=== PATIENT | male | born 1985 | race Hispanic/Latino ===

== ENCOUNTER 2016-11-12 18:20 | Emergency (ER) | payer OTHER ==
[2016-11-12 18:21] VITALS: BMI 18.6
[2016-11-12 18:52] VITALS: TEMP 98.3
[2016-11-12] MEDS ORDERED: Lidocaine 1% Inj (20ml) IJ STA (19:13)
[2016-11-12] MEDS ORDERED: TDAP Vaccine 0.5 mL Syr IM ONE (19:27)
[2016-11-12 20:32] VITALS: BP 120/75; PULSE 70; RESP 18; O2SAT 99
--- NOTE | 2016-11-12 20:36 | ED PDOC ---
Arrival/HPI - History of Present Illness Time/Duration: 1 hour Symptom Onset: Sudden Symptom Course: Unchanged Quality: Stabbing Severity Level: 8 Activities at Onset: Light Context: Home <ZACK HIGH - Last Filed: 11/12/16 21:11> <Jordan Martinez - Last Filed: 11/12/16 22:30> - General Chief Complaint: Abnormal Skin Integrity - History of Present Illness Narrative History of Present Illness (Text): 11/12/16 20:31 Mr. Jeffrey is a 31 year old male with no significant past medical history who presents to the [facility] ED with a chief complaint of finger lacerations. Patient states that approximately 45 minutes prior to arrival, he was washing dishes at his home when he dropped a porcelain dish and cut himself in the process of picking up the pieces on his left third and fifth digits and right first digit. Patient cleaned his wounds out with an OTC saline wash that his significant other picked up from him. Patient denies any fever, chills, chest pain, palpitations, SOB, easy bleeding, easy bruising, decreased ROM or changes in color in his hands/fingers, or any numbness/tingling/weakness in his extremities distal to his lacerations. (ZACK HIGH) Past Medical History - Provider Review Nursing Documentation Reviewed: Yes - Travel History Have you recently traveled outside [place] w/in the past 3 mons?: No - Past History Past History: No Previous - Infectious Disease Hx of Infectious Diseases: None - Tetanus Immunization Tetanus Immunization: Unknown - Cardiac Hx Cardiac Disorders: No - Pulmonary Hx Respiratory Disorders: No - Neurological Hx Neurological Disorder: No - HEENT Hx HEENT Disorder: No - Renal Hx Renal Disorder: No - Endocrine/Metabolic Hx Endocrine Disorders: No - Hematological/Oncological Hx Blood Disorders: No - Integumentary Hx Dermatological Disorder: No - Musculoskeletal/Rheumatological Hx Musculoskeletal Disorders: No - Gastrointestinal Hx Gastrointestinal Disorders: No - Genitourinary/Gynecological Hx Genitourinary Disorders: No - Psychiatric Hx Psychophysiologic Disorder: No Hx Substance Use: Yes - Anesthesia Hx Anesthesia: No <ZACK HIGH - Last Filed: 11/12/16 21:11> Family/Social History - Physician Review Nursing Documentation Reviewed: Yes Family/Social History: Unknown Family HX Smoking Status: Heavy Smoker > 10 Cigarettes Daily Hx Alcohol Use: Yes Frequency of alcohol use: Socially Hx Substance Use: Yes Substance used: marijuana <ZACK HIGH - Last Filed: 11/12/16 21:11> Allergies/Home Meds <ZACK HIGH - Last Filed: 11/12/16 21:11> <Jordan Martinez - Last Filed: 11/12/16 22:30> Allergies/Adverse Reactions: Allergies No Known Allergies Allergy (Verified 06/08/15 12:25) Home Medications: Home Meds Medication Instructions Recorded Confirmed No Known Home Med 06/08/15 11/12/16 Review of Systems - Physician Review All systems were reviewed & negative as marked: Yes - Review of Systems Constitutional: Normal. absent: Fevers, Night Sweats Respiratory: Normal. absent: SOB Cardiovascular: Normal. absent: Chest Pain, Palpitations Musculoskeletal: Normal, Other (Denies color changes distal to lacerations on both right and left hands; denies limited ROM to any affected extremity). absent: Arthralgias, Joint Swelling Skin: Laceration (Lacerations to left third and fifth digits ), Other ( abrasion to right first digit). absent: Normal Neurological: Normal, Other Hemo/Lymphatic: Normal. absent: Easy Bleeding, Easy Bruising <ZACK HIGH - Last Filed: 11/12/16 21:11> Physical Exam Vital Signs Reviewed: Yes Temperature: Afebrile Blood Pressure: Normal Pulse: Regular Respiratory Rate: Normal Appearance: Positive for: Well-Appearing, Non-Toxic, Comfortable Pain Distress: Mild Mental Status: Positive for: Alert and Oriented X 3 - Systems Exam Head: Present: Atraumatic, Normocephalic Pupils: Present: PERRL Extroacular Muscles: Present: EOMI Conjunctiva: Present: Normal Mouth: Present: Moist Mucous Membranes Neck: Present: Normal Range of Motion Respiratory/Chest: Present: Clear to Auscultation, Good Air Exchange. No: Respiratory Distress, Accessory Muscle Use, Wheezes, Tachypneic Cardiovascular: Present: Regular Rate and Rhythm, Normal S1, S2, Peripheal Pulses Present. No: Murmurs, Irregular Rhythm, Tachycardic Abdomen: Present: Normal Bowel Sounds. No: Tenderness, Distention, Peritoneal Signs Upper Extremity: Present: NORMAL PULSES, Neurovascularly Intact, Capillary Refill < 2s. No: Normal Inspection, Cyanosis, Edema, Swelling, Temperature Abnormalties Lower Extremity: Present: Normal Inspection, NORMAL PULSES. No: Edema, CALF TENDERNESS Neurological: Present: GCS=15, CN II-XII Intact, Speech Normal Skin: Present: Warm, Dry, Normal Color, Laceration (1.5cm laceration to PIP of left third digit, 1.5cm laceration to MCP of left fifth digit ), Abrasion ( abrasion of right first digit over MCP). No: Rashes Psychiatric: Present: Alert, Oriented x 3, Normal Insight, Normal Concentration <ZACK HIGH - Last Filed: 11/12/16 21:11> Vital Signs Temp Pulse Resp BP Pulse Ox 11/12/16 20:31 70 18 120/75 99 11/12/16 18:51 98.3 F 87 16 117/73 100 Medical Decision Making <ZACK HIGH - Last Filed: 11/12/16 21:11> <Jordan Martinez - Last Filed: 11/12/16 22:30> ED Course and Treatment: 11/12/16 20:42 Impression: 31 year old male with no significant past medical history who presents to the [facility] ED with a chief complaint of finger lacerations Plan: -Irrigation with sterile normal saline -1% lidocaine IJ for local anasthesia -Suturing of left digit lacerations with finger splint to left third digit -Bacitracin ointment and wound care to both left digit lacerations and right digit abrasion -Tdap vaccine given -Reassess and disposition Prior Visits: All results and reports from previous visits were reviewed 06/08/2015: Patient was seen at [facility] ED for stomach pain (ZACK HIGH) 11/12/16 21:30 Pt. seen and evaluated with the medical office technologist.Agree with HPI,clinical findings,treatment plan. (Jordan Martinez) - Medication Orders Current Medication Orders: Discontinued Medications Lidocaine HCl (Lidocaine 1% (20ml)) 10 ml IJ STAT STA Stop: 11/12/16 19:14 Tetanus/Reduced Diphtheria/Acell Pertussis (Boostrix Vaccine Inj) 0.5 ml IM .ONCE ONE Stop: 11/12/16 19:28 Last Admin: 11/12/16 20:28 Dose: 0.5 ml [facility] Immunization Data Document 11/12/16 20:28 SF (Rec: 11/12/16 20:29 SF [id number]) Immunization Data Vaccine Lot Number [id number] Vaccine Expiration Date 11/25/18 Site Given Left Deltoid Procedure: Wound Repair - Time Performed Time Performed: 20:00 - Time Out Time Out: Side verified, Site verified, Patient ID confirmed, Sterile procedures obs. - Consent Obtained Consent obtained: Verbal - Performed by Performed by: Mid-level Provider - Indications Indication(s):: Laceration - Location Finger:: Left, Middle, Ring Shape:: Linear Dimensions Length cm: 1.5cm on left middle finger and 1.5cm on left ring finger Depth:: Subcutaneous fascia - Anesthetic Technique Anesthetic Technique: Local Local/Regional Anesthetic:: Lidocaine 1% - Debris Debris:: None - Irrigated Irrigated with ml of normal saline: 50 - Complexity Complexity:: Simple (one layer) - Wound repair method Sutures:: # (6), Size (5-0), Type (Proline) - Muscle repiar layer closed with Muscle repair layer closed with:: Abx ointment applied, Dressing applied, Tetanus ordered - Patient tolerated procedure Patient Tolerated Procedure:: Well <ZACK HIGH - Last Filed: 11/12/16 21:11> - PA / WELFARE ELIGIBILITY WORKER / Resident Statement / has reviewed & agrees with the documentation as recorded. / has examined the patient and agrees with the treatment plan. <Jordan Martinez - Last Filed: 11/12/16 22:30> Disposition/Present on Arrival - Present on Arrival Any Indicators Present on Arrival: No History of DVT/PE: No History of Uncontrolled Diabetes: No Urinary Catheter: No History of Decub. Ulcer: No History Surgical Site Infection Following: None - Disposition Have Diagnosis and Disposition been Completed?: No Disposition Time: 20:53 <ZACK HIGH - Last Filed: 11/12/16 21:11> <Jordan Martinez - Last Filed: 11/12/16 22:30> - Disposition Diagnosis: Finger laceration Disposition: HOME/ ROUTINE Condition: GOOD Discharge Instructions (ExitCare): Care For Your Stitches (ED), Laceration (ED) Additional Instructions: Carlos Jeffrey, thank you for letting us take care of you today. Your provider was Dr. Martinez. You were treated for finger lacerations. The emergency medical care you received today was directed at your acute symptoms. If you were prescribed any medication, please fill it and take as directed. It may take several days for your symptoms to resolve. Return to the Emergency Department if your symptoms worsen, do not improve, or if you have any other problems. PLEASE FOLLOW UP WITH EITHER YOUR PMD OR COME BACK TO THE ER IN 7-10 DAYS FOR SUTURE REMOVAL Please contact your doctor or call one of the physicians/clinics you have been referred to that are listed on the Patient Visit Information form that is included in your discharge packet. Bring any paperwork you were given at discharge with you along with any medications you are taking to your follow up visit. Our treatment cannot replace ongoing medical care by a primary care provider (PCP) outside of the emergency department. Thank you for allowing the [employer] team to be part of your care today. Forms: [facility] ([place]), WORK NOTE
== END 2016-11-12 21:01 | disposition home or self-care (01) ==
LOC: ED 18:20
DX: S61.213A Laceration without foreign body of left middle finger without damage to nail, initial encounter (principal); S61.215A Laceration without foreign body of left ring finger without damage to nail, initial encounter; W45.8XXA Other foreign body or object entering through skin, initial encounter; Y93.G1 Activity, food preparation and clean up; Y92.009 Unspecified place in unspecified non-institutional (private) residence as the place of occurrence of the external cause; Z23 Encounter for immunization

== ENCOUNTER 2016-11-19 15:31 | Emergency (ER) | payer OTHER ==
--- NOTE | 2016-11-19 15:34 | ED PDOC ---
Arrival/HPI - General Time Seen by Provider: 11/19/16 15:32 Historian: Patient - History of Present Illness Narrative History of Present Illness (Text): 11/19/16 15:34 31 y/o male, no significant pmh, nkda, s/p sutured on lt. hand 3rd and 5th digit with 6 sutures s/p sutured about 7 days ago. Wound healing well and dry, no numbness or tingling, no night sweat, no rash, no palpitation, no other medical or psychological complaints. Past Medical History - Provider Review Nursing Documentation Reviewed: Yes - Past History Past History: No Previous - Infectious Disease Hx of Infectious Diseases: None - Tetanus Immunization Tetanus Immunization: Unknown - Cardiac Hx Cardiac Disorders: No - Pulmonary Hx Respiratory Disorders: No - Neurological Hx Neurological Disorder: No - HEENT Hx HEENT Disorder: No - Renal Hx Renal Disorder: No - Endocrine/Metabolic Hx Endocrine Disorders: No - Hematological/Oncological Hx Blood Disorders: No - Integumentary Hx Dermatological Disorder: No - Musculoskeletal/Rheumatological Hx Musculoskeletal Disorders: No - Gastrointestinal Hx Gastrointestinal Disorders: No - Genitourinary/Gynecological Hx Genitourinary Disorders: No - Psychiatric Hx Psychophysiologic Disorder: No Hx Substance Use: Yes - Anesthesia Hx Anesthesia: No Family/Social History - Physician Review Nursing Documentation Reviewed: Yes Family/Social History: Unknown Family HX Smoking Status: Heavy Smoker > 10 Cigarettes Daily Hx Alcohol Use: Yes Hx Substance Use: Yes Substance used: marijuana Allergies/Home Meds Allergies/Adverse Reactions: Allergies Pertussis Vaccines Allergy (Verified 11/19/16 15:37) ANAPHYLAXIS Home Medications: Home Meds Medication Instructions Recorded Confirmed No Known Home Med 06/08/15 11/19/16 Review of Systems - Review of Systems Constitutional: absent: Fatigue, Fevers Eyes: absent: Vision Changes ENT: absent: Hearing Changes Respiratory: absent: SOB, Cough Cardiovascular: absent: Chest Pain, Palpitations Gastrointestinal: absent: Abdominal Pain, Diarrhea, Nausea, Vomiting Musculoskeletal: absent: Arthralgias, Back Pain Skin: Laceration (sutures). absent: Rash, Pruritis, Skin Lesions, Abscess, Ulcer Neurological: absent: Headache Physical Exam Vital Signs Reviewed: Yes Vital Signs Temp Pulse Resp BP Pulse Ox 11/19/16 15:39 98.1 F 100 H 18 120/78 98 11/19/16 15:36 98.1 F 100 H 17 120/78 98 Temperature: Afebrile Blood Pressure: Normal Pulse: Regular Respiratory Rate: Normal Appearance: Positive for: Well-Appearing, Non-Toxic, Comfortable Pain Distress: Mild Mental Status: Positive for: Alert and Oriented X 3 - Systems Exam Head: Present: Atraumatic, Normocephalic Pupils: Present: PERRL Extroacular Muscles: Present: EOMI Conjunctiva: Present: Normal Respiratory/Chest: Present: Clear to Auscultation, Good Air Exchange. No: Respiratory Distress, Accessory Muscle Use Cardiovascular: Present: Regular Rate and Rhythm, Normal S1, S2. No: Murmurs Abdomen: Present: Normal Bowel Sounds. No: Tenderness, Distention, Peritoneal Signs Upper Extremity: Present: Normal Inspection, Other (Lt. hand: visible 3 sutures prolene noted on 3rd and 5th digits with total of 6 prolene sutures, wound is still healing and not completely heal, FROM without limitation, sensation intact , motor 5/5, +radial pulse, capillary refill< 2 seconds, neurovascular intact. ) . No: Cyanosis, Edema Neurological: Present: GCS=15, CN II-XII Intact, Speech Normal Skin: Present: Warm, Dry, Normal Color. No: Rashes Psychiatric: Present: Alert, Oriented x 3, Normal Insight, Normal Concentration Medical Decision Making ED Course and Treatment: 11/19/16 15:44 -I explained to the patient that the sutures are too early to be removed, advised to wait additional 3-4 days. -Discharge home with education on follow up with your own pmd and hand specialist within 3-4 days for sutures removal, avoid strenuous exercise or activity, return to the ER for any new or worsening signs or symptoms. - PA / ELECTRONIC DESIGN ENGINEER / Resident Statement / has reviewed & agrees with the documentation as recorded. Disposition/Present on Arrival - Present on Arrival Any Indicators Present on Arrival: No History of DVT/PE: No History of Uncontrolled Diabetes: No Urinary Catheter: No History of Decub. Ulcer: No History Surgical Site Infection Following: None - Disposition Have Diagnosis and Disposition been Completed?: Yes Diagnosis: Suture check Disposition: HOME/ ROUTINE Disposition Time: 15:46 Patient Plan: Discharge Condition: GOOD Additional Instructions: -Discharge home with education on follow up with your own pmd and hand specialist within 3-4 days for sutures removal, avoid strenuous exercise or activity, return to the ER for any new or worsening signs or symptoms. Referrals: [facility] [Outside] - Follow up with primary Mary Ellen Urrutia MD [Non-Staff] - Follow up with primary Forms: WORK NOTE
[2016-11-19 15:37] VITALS: BP 120/78; PULSE 100; TEMP 98.1; O2SAT 98; BMI 17.9
[2016-11-19 15:41] VITALS: RESP 18
== END 2016-11-19 15:56 | disposition home or self-care (01) ==
LOC: ED 15:31
DX: Z51.89 Encounter for other specified aftercare (principal)

== ENCOUNTER 2017-06-02 12:39 | Emergency (ER) | payer OTHER ==
[2017-06-02 12:47] VITALS: BMI 18.1
--- NOTE | 2017-06-02 12:49 | ED PDOC ---
Arrival/HPI - General Time Seen by Provider: 06/02/17 12:48 Historian: Patient - History of Present Illness Narrative History of Present Illness (Text): 06/02/17 12:48 32 y/o male, no significant pmh, allergic to pertussis vaccines?, c/o feeling dizziness/tremoring started yesterday with no alcohol or drug abuse except he smokes marijuanna occasionally. Pt. stated that he had an episode of feeling tremoring/anxious/palpitation with hyperventilating and dizziness shortly which total episode lasted couple minutes then resolved. Pt. stated that he had an episode this morning as well but resolved which again lasted for few seconds. Pt. stated that he doesn't feel anxious/depression/suicidal or homicidal ideation. Pt. has no other medical or psychological complaints. Past Medical History - Provider Review Nursing Documentation Reviewed: Yes - Past History Past History: No Previous - Infectious Disease Hx of Infectious Diseases: None - Tetanus Immunization Tetanus Immunization: Unknown - Cardiac Hx Cardiac Disorders: No - Pulmonary Hx Respiratory Disorders: No - Neurological Hx Neurological Disorder: No - HEENT Hx HEENT Disorder: No - Renal Hx Renal Disorder: No - Endocrine/Metabolic Hx Endocrine Disorders: No - Hematological/Oncological Hx Blood Disorders: No - Integumentary Hx Dermatological Disorder: No - Musculoskeletal/Rheumatological Hx Musculoskeletal Disorders: No - Gastrointestinal Hx Gastrointestinal Disorders: No - Genitourinary/Gynecological Hx Genitourinary Disorders: No - Psychiatric Hx Psychophysiologic Disorder: No Hx Substance Use: Yes - Anesthesia Hx Anesthesia: No Family/Social History - Physician Review Nursing Documentation Reviewed: Yes Family/Social History: Unknown Family HX Smoking Status: Heavy Smoker > 10 Cigarettes Daily Hx Alcohol Use: Yes Hx Substance Use: Yes Substance used: marijuana Allergies/Home Meds Allergies/Adverse Reactions: Allergies Pertussis Vaccines Allergy (Verified 11/19/16 15:37) ANAPHYLAXIS Home Medications: Home Meds Medication Instructions Recorded Confirmed No Known Home Med 06/08/15 11/19/16 Review of Systems - Review of Systems Constitutional: absent: Fatigue, Fevers Eyes: absent: Vision Changes ENT: absent: Hearing Changes Respiratory: absent: SOB, Cough Cardiovascular: absent: Chest Pain Gastrointestinal: absent: Abdominal Pain, Nausea, Vomiting Skin: absent: Rash, Pruritis Neurological: absent: Headache Psychiatric: absent: Anxiety, Depression Physical Exam Vital Signs Reviewed: Yes Vital Signs Temp Pulse Resp BP Pulse Ox 06/02/17 12:40 98.2 F 81 16 119/74 98 Temperature: Afebrile Blood Pressure: Normal Pulse: Regular Respiratory Rate: Normal Appearance: Positive for: Well-Appearing, Non-Toxic, Comfortable Pain Distress: None Mental Status: Positive for: Alert and Oriented X 3 - Systems Exam Head: Present: Atraumatic, Normocephalic Pupils: Present: PERRL Extroacular Muscles: Present: EOMI Conjunctiva: Present: Normal Mouth: Present: Moist Mucous Membranes Neck: Present: Normal Range of Motion Respiratory/Chest: Present: Clear to Auscultation, Good Air Exchange. No: Respiratory Distress, Accessory Muscle Use Cardiovascular: Present: Regular Rate and Rhythm, Normal S1, S2. No: Murmurs Abdomen: No: Tenderness, Distention, Peritoneal Signs Back: Present: Normal Inspection Upper Extremity: Present: Normal Inspection. No: Cyanosis, Edema Lower Extremity: Present: Normal Inspection. No: Edema Neurological: Present: GCS=15, CN II-XII Intact, Speech Normal, Motor Func Grossly Intact, Gait Normal, Memory Normal, Other (no tremors and no tongue fasciculation. ) Skin: Present: Warm, Dry, Normal Color. No: Rashes Psychiatric: Present: Alert, Oriented x 3, Normal Insight, Normal Concentration Medical Decision Making ED Course and Treatment: 06/02/17 13:09 -Labs/alcohol and drug screening/thyroid profile -ekg -cxr -IVF -Observe and reassess 06/02/17 14:56 -Pt. is asymptomatic, feels well, request to be discharged home, refused psychiatric evaluation. He has no homocidal/suicidal ideation either. -EKG: NSR @ 65 BPM, no ST elevation or depression, no T wave inversion, incomplete LBBB. -Chest xray: no active disease -Labs are non-significant -Thyroid profile is mild low TSH and normal T4, this is subclinical hyperthyroidism. -Troponin is non-significant -UDS show +Cannabinoid -Discharge home with education on avoid caffeine/energy products and avoid gym/ exercise/activity until clear by the ultrasound applications specialist, follow up with your own pmd and endocrionologist as well regarding about your low TSH and normal T4 as this will needs follow up with repeat test and thyroid sonogram, return to the ER for any new or worsening signs or symptoms. - Lab Interpretations Lab Results: 06/02/17 13:29 06/02/17 13:29 Lab Results 06/02/17 13:29: WBC 5.4 D, RBC 4.98, Hgb 14.9, Hct 44.5, MCV 89.4, MCH 29.9, MCHC 33.5, RDW 12.6, Plt Count 266, MPV 10.9, Gran % 67.0, Lymph % (Auto) 18.6 L , [place] % (Auto) 9.0 H, Eos % (Auto) 4.1, Baso % (Auto) 1.3, Gran # 3.64, Lymph # (Auto) 1.0 L, [place] # (Auto) 0.5, Eos # (Auto) 0.2, Baso # (Auto) 0.07 06/02/17 13:29: Salicylates < 1 L, Acetaminophen < 10.0 L 06/02/17 13:29: Free T4 1.00, TSH 3rd Generation 0.32 L, Alcohol, Quantitative < 10 06/02/17 13:29: Urine Opiates Screen Negative, Urine Methadone Screen Negative, Ur Barbiturates Screen Negative, Ur Phencyclidine Scrn Negative, Ur Amphetamines Screen Negative, U Benzodiazepines Scrn Negative, U Oth Cocaine Metabols Negative, U Cannabinoids Screen Positive H 06/02/17 13:29: Sodium 141, Potassium 3.9, Chloride 103, Carbon Dioxide 29, Anion Gap 12, BUN 15, Creatinine 0.7 L, Est GFR ( Amer) > 60, Est GFR ( Non-Af Amer) > 60, Random Glucose 105, Calcium 9.6, Magnesium 2.0, Total Bilirubin 1.1, AST 21, ALT 28, Alkaline Phosphatase 73, Lactate Dehydrogenase 261 L, Total Creatine Kinase 88, Troponin I < 0.01, Total Protein 6.7, Albumin 4.4, Globulin 2.3, Albumin/Globulin Ratio 1.9 H I have reviewed the lab results: Yes - RAD Interpretation Radiology Orders: 06/02/17 13:03 CHEST PORTABLE [RAD] Stat HISTORY: medical clearance COMPARISON: No prior. FINDINGS: LUNGS: No active pulmonary disease. PLEURA: No significant pleural effusion identified, no pneumothorax apparent. CARDIOVASCULAR: Normal. OSSEOUS STRUCTURES: No significant abnormalities. VISUALIZED UPPER ABDOMEN: Normal. OTHER FINDINGS: None. IMPRESSION: No active disease. Training Systems Officer: Radiologist - EKG Interpretation EKG Interpretation (Text): 06/02/17 14:54 -EKG: NSR @ 65 BPM, no ST elevation or depression, no T wave inversion, incomplete LBBB. Interpreted by ED Physician: Yes Type: 12 lead EKG - Medication Orders Current Medication Orders: Discontinued Medications Sodium Chloride (Sodium Chloride 0.9%) 1,000 mls @ 999 mls/hr IV .Q1H1M STA Stop: 06/02/17 14:03 Last Admin: 06/02/17 13:26 Dose: 999 mls/hr eMAR Start Stop Document 06/02/17 13:26 GMD (Rec: 06/02/17 13:26 GMD [id number]) Intravenous Solution Start Date 06/02/17 Start Time 13:26 End Date 06/02/17 End time 14:27 Total Infusion Time 61 - PA / DROP WIRE ALINER / Resident Statement / has reviewed & agrees with the documentation as recorded. Disposition/Present on Arrival - Present on Arrival Any Indicators Present on Arrival: No History of DVT/PE: No History of Uncontrolled Diabetes: No Urinary Catheter: No History of Decub. Ulcer: No History Surgical Site Infection Following: None - Disposition Have Diagnosis and Disposition been Completed?: Yes Diagnosis: Subclinical hyperthyroidism Disposition: HOME/ ROUTINE Disposition Time: 13:09 Patient Plan: Discharge Condition: IMPROVED Additional Instructions: -Discharge home with education on avoid caffeine/energy products and avoid gym/ exercise/activity until clear by the ultrasound applications specialist, follow up with your own pmd and endocrionologist as well regarding about your low TSH and normal T4 as this will needs follow up with repeat test and thyroid sonogram, return to the ER for any new or worsening signs or symptoms. Referrals: Billie Valdez MD [Medical Doctor] - Follow up with primary Campos Hendricks MD [Staff Provider] - Follow up with primary Forms: WORK NOTE
[2017-06-02 12:51] VITALS: TEMP 98.2
[2017-06-02] MEDS ORDERED: Sodium Chloride 0.9% 1,000 ML IV STA (13:03)
[2017-06-02 13:45] LABS: BASO # 0.07 K/mm3 (0.0-2.0); BASO % 1.3 % (0.0-3.0); EOS # 0.2 (0.0-0.7); EOS % 4.1 % (1.5-5.0); GRAN # 3.64 (1.4-6.5); HEMOGLOBIN 14.9 g/dL (14.0-18.0); LYMPH % 18.6 % (22.0-35.0); MEAN CELL VOLUME 89.4 fl (80.0-105.0); MEAN CORPUSCULAR HEMOGLOBIN 29.9 pg (25.0-35.0); MEAN CORPUSCULAR HGB CONC 33.5 g/dl (31.0-37.0); MEAN PLATELET VOLUME 10.9 fl (7.0-11.0); MONO # 0.5 (0.1-0.6); RBC 4.98 10^6/uL (3.5-6.1); RED CELL DISTRIBUTION WIDTH 12.6 % (11.5-14.5); WHITE BLOOD COUNT 5.4 10^3/ul (4.5-11.0)
--- NOTE | 2017-06-02 13:57 | RAD ---
HISTORY: medical clearance COMPARISON: No prior. FINDINGS: LUNGS: No active pulmonary disease. PLEURA: No significant pleural effusion identified, no pneumothorax apparent. CARDIOVASCULAR: Normal. OSSEOUS STRUCTURES: No significant abnormalities. VISUALIZED UPPER ABDOMEN: Normal. OTHER FINDINGS: None. IMPRESSION: No active disease.
[2017-06-02 14:08] LABS: ALB/GLOB RATIO 1.9 (1.1-1.8); ALBUMIN 4.4 g/dL (3.0-4.8); ALT/SGPT 28 U/L (7-56); AST/SGOT 21 U/L (17-59); BLOOD UREA NITROGEN 15 mg/dL (7-21); CALCIUM 9.6 mg/dL (8.4-10.5); GFR AFRICAN-AMERICAN > 60; GFR NON-AFRICAN AMERICAN > 60
[2017-06-02 14:14] LABS: ACETAMINOPHEN < 10.0 ug/ml (10.0-20.0); SALICYLATE < 1 mg/dL (2.0-20.0)
[2017-06-02 14:25] LABS: BARBITURATES, UR NEGATIVE (NEGATIVE); BENZODIAZEPINES, UR NEGATIVE (NEGATIVE); OPIATES, UR NEGATIVE (NEGATIVE); PHENCYCLIDINE, UR NEGATIVE (NEGATIVE)
[2017-06-02 14:30] LABS: TROPONIN I < 0.01 ng/mL
[2017-06-02 15:29] VITALS: BP 128/76; PULSE 76; RESP 18; O2SAT 100
--- NOTE | 2017-06-02 23:36 | CARD ---
APPROVED REPORT EKG Measurement Heart [id number] <Conclusion> Normal sinus rhythm Normal ECG
== END 2017-06-02 15:31 | disposition home or self-care (01) ==
LOC: ED 12:39
DX: E05.90 Thyrotoxicosis, unspecified without thyrotoxic crisis or storm (principal); F12.10 Cannabis abuse, uncomplicated
CPT/HCPCS: 71045; 80053; 80320; 80324; 80329; 80345; 80346; 80349; 80353; 80358; 80361; 82550; 83615; 83735; 83992; 84439; 84443; 84484; 85025; 93005; 96360; 99284; J7040

== ENCOUNTER 2017-07-29 13:04 | Emergency (ER) | payer OTHER ==
[2017-07-29 13:38] VITALS: RESP 18; TEMP 98.5; BMI 17.9
--- NOTE | 2017-07-29 13:59 | ED PDOC ---
Arrival/HPI - General Chief Complaint: GI Problem Time Seen by Provider: 07/29/17 13:33 Historian: Patient - History of Present Illness Narrative History of Present Illness (Text): 07/29/17 13:54 32 year old male, with no significant past medical history, presents to the Emergency department for transient nausea since 1 month. Patient states every morning he wakes up with nausea and feels shaky, which subsequently subsides as the day progresses. However, the episode presents again the following morning and has been going on for a month. Patient denies any fever, chills, vomiting, diarrhea, abdominal pain, chest pain, shortness of breath or any other complaints. Patient denies smoking cigarettes or drinking alcohol. Patient presents to the Emergency department for medical evaluation. Time/Duration: Other (1 month) Symptom Onset: Gradual Symptom Course: Unchanged Activities at Onset: Light Context: Home Past Medical History - Provider Review Nursing Documentation Reviewed: Yes - Past History Past History: No Previous - Infectious Disease Hx of Infectious Diseases: None - Tetanus Immunization Tetanus Immunization: Unknown - Cardiac Hx Cardiac Disorders: No - Pulmonary Hx Respiratory Disorders: No - Neurological Hx Neurological Disorder: No - HEENT Hx HEENT Disorder: No - Renal Hx Renal Disorder: No - Endocrine/Metabolic Hx Endocrine Disorders: No - Hematological/Oncological Hx Blood Disorders: No - Integumentary Hx Dermatological Disorder: No - Musculoskeletal/Rheumatological Hx Musculoskeletal Disorders: No - Gastrointestinal Hx Gastrointestinal Disorders: No - Genitourinary/Gynecological Hx Genitourinary Disorders: No - Psychiatric Hx Psychophysiologic Disorder: No Hx Substance Use: Yes - Anesthesia Hx Anesthesia: No Family/Social History - Physician Review Nursing Documentation Reviewed: Yes Family/Social History: No Known Family HX Smoking Status: Heavy Smoker > 10 Cigarettes Daily Hx Alcohol Use: Yes Hx Substance Use: Yes Substance used: marijuana Allergies/Home Meds Allergies/Adverse Reactions: Allergies Pertussis Vaccines Allergy (Verified 11/19/16 15:37) ANAPHYLAXIS Review of Systems - Physician Review All systems were reviewed & negative as marked: Yes - Review of Systems Constitutional: Normal. absent: Fevers Eyes: Normal ENT: Normal Respiratory: Normal. absent: SOB Cardiovascular: Normal. absent: Chest Pain Gastrointestinal: Nausea. absent: Abdominal Pain, Diarrhea, Vomiting Genitourinary Male: Normal Musculoskeletal: Normal Skin: Normal Neurological: Normal Endocrine: Normal Hemo/Lymphatic: Normal Psychiatric: Normal Physical Exam Vital Signs Reviewed: Yes Vital Signs Temp Pulse Resp BP Pulse Ox 07/29/17 13:04 98.5 F 78 18 115/72 97 Temperature: Afebrile Blood Pressure: Normal Pulse: Regular Respiratory Rate: Normal Appearance: Positive for: Well-Appearing, Non-Toxic, Comfortable Pain Distress: None Mental Status: Positive for: Alert and Oriented X 3 - Systems Exam Head: Present: Atraumatic, Normocephalic Pupils: Present: PERRL Extroacular Muscles: Present: EOMI Conjunctiva: Present: Normal Mouth: Present: Moist Mucous Membranes Neck: Present: Normal Range of Motion Respiratory/Chest: Present: Clear to Auscultation, Good Air Exchange. No: Respiratory Distress, Accessory Muscle Use Cardiovascular: Present: Regular Rate and Rhythm, Normal S1, S2. No: Murmurs Abdomen: No: Tenderness, Distention, Peritoneal Signs Back: Present: Normal Inspection Upper Extremity: Present: Normal Inspection. No: Cyanosis, Edema Lower Extremity: Present: Normal Inspection. No: Edema Neurological: Present: GCS=15, CN II-XII Intact, Speech Normal Skin: Present: Warm, Dry, Normal Color. No: Rashes Psychiatric: Present: Alert, Oriented x 3, Normal Insight, Normal Concentration Medical Decision Making ED Course and Treatment: 07/29/17 14:00 Impression: 32 year old male presents to the Emergency department for transient nausea since 1 month. Plan: -- Reassess and disposition Prior Visits: Notes and results from previous visits were reviewed. Progress Notes: Fingerstick done and was 56, orange juice given 07/29/17 14:26 FS glucose 119 after drinking juice. Vitals within normal limits. Patient asymptomatic. Advised eating larger breakfast if he feels shaky in the morning. Will discharge with Rx for zofran PRN for nausea. Advised to follow up with PMD. - Scribe Statement The provider has reviewed the documentation as recorded by the Scribe Denis Chung. All medical record entries made by the Scribe were at my direction and personally dictated by me. I have reviewed the chart and agree that the record accurately reflects my personal performance of the history, physical exam, medical decision making, and the department course for this patient. I have also personally directed, reviewed, and agree with the discharge instructions and disposition. Disposition/Present on Arrival - Present on Arrival Any Indicators Present on Arrival: No History of DVT/PE: No History of Uncontrolled Diabetes: No Urinary Catheter: No History of Decub. Ulcer: No History Surgical Site Infection Following: None - Disposition Have Diagnosis and Disposition been Completed?: Yes Diagnosis: Nausea, Hypoglycemia Disposition: HOME/ ROUTINE Disposition Time: 14:27 Patient Problems: Current Active Problems Problem Status Onset Nausea Acute Hypoglycemia Acute Condition: GOOD Discharge Instructions (ExitCare): Low Blood Sugar in People Without Diabetes Additional Instructions: BROWN EASTMAN, thank you for letting us take care of you today. Your provider was Zoë French MD and you were treated for NAUSEA and LOW BLOOD SUGAR. The emergency medical care you received today was directed at your acute symptoms. If you were prescribed any medication, please fill it and take as directed. It may take several days for your symptoms to resolve. Return to the Emergency Department if your symptoms worsen, do not improve, or if you have any other problems. Please contact your doctor or call one of the physicians/clinics you have been referred to that are listed on the Patient Visit Information form that is included in your discharge packet. Bring any paperwork you were given at discharge with you along with any medications you are taking to your follow up visit. Our treatment cannot replace ongoing medical care by a primary care provider outside of the emergency department. Thank you for allowing the [facility] team to be part of your care today. If you had an X-Ray or CT scan: A Radiologist will review the ED reading if any change in treatment is needed we will contact you. If you had a blood, urine, or wound culture: It will take several days for the results, if any change in treatment is needed we will contact you. If you had an STI test: It will take 48 hours for the results. Please call after 1 week if you have not heard back. Prescriptions: Ondansetron [Zofran] 4 mg PO Q8H PRN #9 tab PRN Reason: Nausea/Vomiting Forms: [employer] ([place])
[2017-07-29 15:35] VITALS: BP 109/70; PULSE 74; O2SAT 98
== END 2017-07-29 15:10 | disposition home or self-care (01) ==
LOC: ED 13:04
DX: E16.2 Hypoglycemia, unspecified (principal); R11.0 Nausea

== ENCOUNTER 2018-05-07 08:14 | Emergency (ER) | payer OTHER ==
[2018-05-07 08:15] VITALS: BMI 18.1
[2018-05-07 08:26] VITALS: RESP 18; TEMP 97.6
[2018-05-07] MEDS ORDERED: Sodium Chloride 0.9% 1,000 ML IV STA (08:54)
--- NOTE | 2018-05-07 08:56 | ED PDOC ---
Arrival/HPI - General Chief Complaint: GI Problem Historian: Patient - History of Present Illness Narrative History of Present Illness (Text): 05/07/18 08:54 33 year old male, whose past medical history includes gastritis, presents to the emergency department complaining of right-sided flank pain and vomiting x3 that began last night. Patient denies similar symptoms in the past. Patient had an endoscopy done 8 months ago where he was diagnosed with gastritis, but it not complaint with medication. Patient denies any fever, chills, chest pain, shortness of breath, diarrhea, urinary symptoms, back pain, neck pain, headache, dizziness, or any other complaints. Time/Duration: Other (last night) Symptom Onset: Sudden Symptom Course: Unchanged Activities at Onset: Light Context: Home Past Medical History - Provider Review Nursing Documentation Reviewed: Yes - Past History Past History: No Previous - Infectious Disease Hx of Infectious Diseases: None - Tetanus Immunization Tetanus Immunization: Unknown - Cardiac Hx Cardiac Disorders: No - Pulmonary Hx Respiratory Disorders: No - Neurological Hx Neurological Disorder: No - HEENT Hx HEENT Disorder: No - Renal Hx Renal Disorder: No - Endocrine/Metabolic Hx Endocrine Disorders: No - Hematological/Oncological Hx Blood Disorders: No - Integumentary Hx Dermatological Disorder: No - Musculoskeletal/Rheumatological Hx Musculoskeletal Disorders: No - Gastrointestinal Hx Gastrointestinal Disorders: No - Genitourinary/Gynecological Hx Genitourinary Disorders: No - Psychiatric Hx Psychophysiologic Disorder: No Hx Substance Use: Yes - Anesthesia Hx Anesthesia: No Family/Social History - Physician Review Nursing Documentation Reviewed: Yes Family/Social History: No Known Family HX Smoking Status: Current Some Days Smoker Hx Alcohol Use: Yes Frequency of alcohol use: Socially Hx Substance Use: Yes Substance used: marijuana Allergies/Home Meds Allergies/Adverse Reactions: Allergies Pertussis Vaccines Allergy (Verified 11/19/16 15:37) ANAPHYLAXIS Review of Systems - Physician Review All systems were reviewed & negative as marked: Yes - Review of Systems Constitutional: absent: Fevers, Other (chills) Respiratory: absent: SOB Cardiovascular: absent: Chest Pain Gastrointestinal: Abdominal Pain, Nausea, Vomiting. absent: Diarrhea Genitourinary Male: absent: Dysuria, Frequency, Hematuria Musculoskeletal: absent: Back Pain, Neck Pain Neurological: absent: Headache, Dizziness Physical Exam Vital Signs Reviewed: Yes Vital Signs Temp Pulse Resp BP Pulse Ox 05/07/18 08:22 97.6 F 108 H 18 114/77 99 Temperature: Afebrile Blood Pressure: Normal Pulse: Tachycardic Respiratory Rate: Normal Appearance: Positive for: Well-Appearing, Non-Toxic, Comfortable Pain Distress: None Mental Status: Positive for: Alert and Oriented X 3 - Systems Exam Head: Present: Atraumatic, Normocephalic Pupils: Present: PERRL Extroacular Muscles: Present: EOMI Conjunctiva: Present: Normal Mouth: Present: Moist Mucous Membranes Neck: Present: Normal Range of Motion Respiratory/Chest: Present: Clear to Auscultation, Good Air Exchange. No: Respiratory Distress, Accessory Muscle Use Cardiovascular: Present: Regular Rate and Rhythm, Normal S1, S2. No: Murmurs Abdomen: No: Tenderness, Distention, Peritoneal Signs Back: Present: CVA Tenderness (right) Upper Extremity: Present: Normal Inspection. No: Cyanosis, Edema Lower Extremity: Present: Normal Inspection. No: Edema Neurological: Present: GCS=15, Speech Normal Skin: Present: Warm, Dry, Normal Color. No: Rashes Psychiatric: Present: Alert, Oriented x 3, Normal Insight, Normal Concentration Medical Decision Making ED Course and Treatment: 05/07/18 08:54 Impression: 33 year old male presents complaining of right-sided flank pain associated with nausea and vomiting that began last night. Plan: -- CT Abd & Pelvis w/o contrast -- Labs -- IV Fluids, Toradol -- Urine Culture -- Urinalysis -- Reassess and disposition Prior Visits: Notes and results from previous visits were reviewed. Progress Notes: PROCEDURE: CT Abdomen and Pelvis without intravenous contrast Dictator : Nadia Ricks MD Report Date : 05/07/2018 11:58:20 IMPRESSION: 1. No acute abdominal or pelvic abnormality. 2. Bilateral nephrocalcinosis. No evidence for obstructive uropathy. 3. Evaluation of pyelonephritis is limited in the absence of intravenous contrast. Cortical scarring in the upper pole of the right kidney, a sequela of remote infection/inflammation. 05/07/18 12:24 On re-evaluation, patient is in no acute distress. I have discussed the results and plan with the patient, who expresses understanding. Patient in agreement with plan to be discharged home. Patient is stable for discharge. Patient was instructed to follow up with physician or return if symptoms worsen or new concerning symptoms arise. - Lab Interpretations I have reviewed the lab results: Yes - RAD Interpretation Bisque Grader: Radiologist - Sabrinaibrupert Statement The provider has reviewed the documentation as recorded by the Sohail Gonsales Provider Sohail Attestation: All medical record entries made by the Sabrinaibe were at my direction and personally dictated by me. I have reviewed the chart and agree that the record accurately reflects my personal performance of the history, physical exam, medical decision making, and the department course for this patient. I have also personally directed, reviewed, and agree with the discharge instructions and disposition. Disposition/Present on Arrival - Present on Arrival Any Indicators Present on Arrival: No History of DVT/PE: No History of Uncontrolled Diabetes: No Urinary Catheter: No History of Decub. Ulcer: No History Surgical Site Infection Following: None - Disposition Have Diagnosis and Disposition been Completed?: Yes Diagnosis: Flank pain Disposition: HOME/ ROUTINE Disposition Time: 11:50 Condition: IMPROVED Discharge Instructions (ExitCare): Acute Abdomen (Belly Pain), Adult (DC) Additional Instructions: BROWN EASTMAN, thank you for letting us take care of you today. The emergency medical care you received today was directed at your acute symptoms. If you were prescribed any medication, please fill it and take as directed. It may take several days for your symptoms to resolve. Return to the Emergency Department if your symptoms worsen, do not improve, or if you have any other problems. Please contact your doctor or call one of the physicians/clinics you have been referred to that are listed on the Patient Visit Information form that is included in your discharge packet. Bring any paperwork you were given at discharge with you along with any medications you are taking to your follow up visit. Our treatment cannot replace ongoing medical care by a primary care provider outside of the emergency department. Thank you for allowing the [facility] team to be part of your care today. Follow up with your primary care doctor or our clinic in 3-5 days for re- evaluation and further management. Prescriptions: Ibuprofen [Motrin] 600 mg PO Q6 PRN #20 tab PRN Reason: Pain, Moderate (4-7) Referrals: [facility] [Outside] - Follow up with primary Araseli Fischer MD [Medical Doctor] - Follow up with primary Forms: [employer] (Telugu)
[2018-05-07 09:24] LABS: ALB/GLOB RATIO 1.4 (1.1-1.8); ALBUMIN 4.6 g/dL (3.0-4.8); ALT/SGPT 16 U/L (7-56); AST/SGOT 19 U/L (17-59); BLOOD UREA NITROGEN 18 mg/dL (7-21); CALCIUM 10.1 mg/dL (8.4-10.5); GFR NON-AFRICAN AMERICAN > 60; LIPASE 14 U/L (23-300)
[2018-05-07 09:28] LABS: URINE BILIRUBIN NEGATIVE (NEGATIVE); URINE BLOOD TRACE-INTACT (NEGATIVE); URINE GLUCOSE (UA) NEGATIVE (NEGATIVE); URINE LEUKOCYTE ESTERASE NEGATIVE Leu/uL (NEGATIVE); URINE PROTEIN TRACE mg/dL (<30 mg/dL)
[2018-05-07 09:29] LABS: BASO # 0.02 K/mm3 (0.0-2.0); BASO % 0.2 % (0.0-3.0); EOS % 0.1 % (1.5-5.0); HEMOGLOBIN 16.5 g/dL (14.0-18.0); LYMPH # 0.6 (1.2-3.4); LYMPH % 7.2 % (22.0-35.0); MEAN CELL VOLUME 89.1 fl (80.0-105.0); MEAN CORPUSCULAR HEMOGLOBIN 29.9 pg (25.0-35.0); MEAN CORPUSCULAR HGB CONC 33.5 g/dl (31.0-37.0); MONO # 0.2 (0.1-0.6); MONO % 2.1 % (1.0-6.0); PLATELET COUNT 233 10^3/uL (120.0-450.0); RBC 5.52 10^6/uL (3.5-6.1); RED CELL DISTRIBUTION WIDTH 12.3 % (11.5-14.5); WHITE BLOOD COUNT 8.8 10^3/uL (4.5-11.0)
[2018-05-07 09:35] LABS: URINE APPEARANCE CLEAR (CLEAR); URINE COLOR YELLOW (YELLOW)
[2018-05-07 10:00] LABS: URINE RBC 0 - 2 /hpf (0-2); URINE WBC 0 - 2 /hpf (0-6)
[2018-05-07 10:19] LABS: LYMPHOCYTE 4 % (22.0-35.0); MONOCYTE 3 % (1.0-6.0); NEUTROPHIL 93 % (50.0-70.0)
[2018-05-07 10:20] LABS: PLATELET ESTIMATE NORMAL (NORMAL)
--- NOTE | 2018-05-07 12:01 | CT ---
Date of service: 05/07/2018 PROCEDURE: CT Abdomen and Pelvis without intravenous contrast HISTORY: COMPARISON: None. TECHNIQUE: CT scan of the abdomen and pelvis was performed without administration of intravenous contrast. Oral contrast was not administered. Coronal and sagittal reformatted images were obtained. Radiation dose: Total exam DLP = 211.2 mGy-cm. This CT exam was performed using one or more of the following dose reduction techniques: Automated exposure control, adjustment of the mA and/or kV according to patient size, and/or use of iterative reconstruction technique. FINDINGS: LOWER THORAX: The visualized lungs are clear. LIVER: Normal in size. No gross lesion or ductal dilatation. GALLBLADDER AND BILE DUCTS: Well distended. No calcified gallstones. No common bile duct dilatation. PANCREAS: Normal in size. No gross lesion or ductal dilatation. SPLEEN: Mild splenomegaly. ADRENALS: Normal in size. No discrete nodule. KIDNEYS AND URETERS: Both kidneys are normal in size. There is bilateral nephrocalcinosis. There is mild cortical scarring in the upper pole of the right kidney. No hydronephrosis or obstructive uropathy. VASCULATURE: Normal in caliber. No aortic aneurysm. No aortic atherosclerotic calcification or mural plaque present. BOWEL: Evaluation of the bowel is limited in the absence of oral contrast. The small bowel loops are normal in caliber. The colon is normal in size. No bowel dilatation or wall thickening. No bowel obstruction. APPENDIX: Normal appendix. PERITONEUM: No free fluid. No free air. LYMPH NODES: No enlarged lymph nodes. BLADDER: Well distended and normal in appearance. REPRODUCTIVE: The prostate gland is normal in size. BONES: No acute fracture. Within normal limits for the patient's age. OTHER FINDINGS: None. IMPRESSION: 1. No acute abdominal or pelvic abnormality. 2. Bilateral nephrocalcinosis. No evidence for obstructive uropathy. 3. Evaluation of pyelonephritis is limited in the absence of intravenous contrast. Cortical scarring in the upper pole of the right kidney, a sequela of remote infection/inflammation.
[2018-05-07 13:14] VITALS: BP 112/64; PULSE 89; O2SAT 98
== END 2018-05-07 13:40 | disposition home or self-care (01) ==
LOC: ED 08:14
DX: R10.9 Unspecified abdominal pain (principal)
CPT/HCPCS: 74176; 80053; 81001; 83690; 83735; 85025; 87086; 96374; 99283; J1885; J7030